=== PATIENT | female | born 2000 | race Caucasian/White ===

== ENCOUNTER 2021-08-27 19:09 | Emergency (ER) | payer OTHER ==
[~2021-08-27] VITALS: Ht 170.2 cm; Wt 65.0 kg
[~2021-08-27 19:09] MED LIST: CEPH-264 PO; HYDR-3165 PO; SILV20CR14 TP
[2021-08-27 19:20] VITALS: BP 115/74
--- NOTE | 2021-08-27 19:40 | PHYS DOC ---
Past History Past Medical History: No Pertinent History (ZENA YUAN APRN) Past Surgical History: No Surgical History (ZENA YUAN APRN) Smoking: Non-smoker Alcohol Use: None Drug Use: None (ZEAN YUAN APRN) General Adult EDM: Chief Complaint: BACK PAIN OR INJURY HPI: HPI: Patient is a 20-year-old female who presents to the emergency department today for left flank pain. Patient reports that she has had dysuria over the last week. She rates her pain 6 out of 10. No treatment prior to arrival. She denies any fevers, nausea, vomiting, abdominal pain. (ZENA YUAN APRN) Review of Systems: Review of Systems: Constitutional: See HPI GI: See HPI : See HPI Musculoskeletal: See HPI (ZENA YUAN APRN) Allergies: Allergies: Allergies Coded Allergies Type Severity Reaction Last Updated Verified No Known Drug Allergies 03/09/16 No (ZENA YUAN APRN) Physical Exam: PE: Constitutional: Well developed, well nourished, no acute distress, non-toxic appearance. [] HENT: Normocephalic, atraumatic, bilateral external ears normal, oropharynx moist, no oral exudates, nose normal. [] Eyes: PERRL, EOMI, conjunctiva normal, no discharge. [] Neck: Normal range of motion, no tenderness, supple, no stridor. [] Cardiovascular:Heart rate regular rhythm, no murmur [] Lungs & Thorax: Bilateral breath sounds clear to auscultation [] Abdomen: Bowel sounds normal, soft, no tenderness, no masses, no pulsatile masses. [] Skin: Warm, dry, no erythema, no rash. [] Back: No tenderness, left CVA tenderness Extremities: No tenderness, no cyanosis, no clubbing, ROM intact, no edema. [] Neurologic: Alert and oriented X 3, normal motor function, normal sensory function, no focal deficits noted. [] Psychologic: Affect normal, judgement normal, mood normal. [] (ZENA YUAN APRN) Current Patient Data: Labs: Laboratory Tests Test 08/27/21 18:52 08/27/21 19:35 Bedside Urine HCG, Qualitative hcg negative Urine Collection Type Clean catch Urine Color Yellow Urine Clarity Cloudy Urine pH 6.0 Urine Specific [place] >=1.030 Urine Protein >100 mg/dl Urine Glucose (UA) Neg mg/dL Urine Ketones (Stick) Neg mg/dL Urine Blood Large Urine Nitrite Neg Urine Bilirubin Neg Urine Urobilinogen Dipstick 0.2 mg/dL Urine Leukocyte Esterase Small Urine RBC 11-20 /HPF Urine WBC 20-40 /HPF Urine Squamous Epithelial Cells Few /LPF Urine Bacteria Mod /HPF (ZENA YUAN APRN) EKG: EKG: [] (ZENA YUAN APRN) Radiology/Procedures: Radiology/Procedures: [] (ZENA YUAN APRN) Heart Score: C/O Chest Pain: N/A Risk Factors: Risk Factors: DM, Current or recent (<one month) smoker, HTN, HLP, family history of CAD, obesity. Risk Scores: Score 0 - 3: 2.5% MACE over next 6 weeks - Discharge Home Score 4 - 6: 20.3% MACE over next 6 weeks - Admit for Clinical Observation Score 7 - 10: 72.7% MACE over next 6 weeks - Early Invasive Strategies (ZENA YUAN APRN) Course & Med Decision Making: Course & Med Decision Making Pertinent Labs and Imaging studies reviewed. (See chart for details) [] Patient presents to the emergency department today for left flank pain and dysuria. Urinalysis test performed. Urinalysis shows a urinary tract infection. Patient be treated with an antibiotic. Patient advised to increase fluids and avoid bladder irritants. I discussed with patient all findings and diagnostic testing as well as the need to follow-up with PCP for further evaluation and treatment or return to the ER if any new or worsening symptoms. Strict return precautions were also discussed at length. Patient voiced understanding and agreement with the plan. Patient is hemodynamically stable at the time of disposition. (ZENA YUAN APRN) Dragon Disclaimer: Dragon Disclaimer: This electronic medical record was generated, in whole or in part, using a voice recognition dictation system. (ZENA YUAN APRN) Attending Co-Sign The patient was seen and interviewed as well as examined at the bedside. The chart was reviewed. The case was discussed. Agree with the plan of care. (FRANSISCA ALSTON DO) Departure Departure: Impression: Primary Impression: Urinary tract infection Qualified Codes: N30.01 - Acute cystitis with hematuria Disposition: HOME / SELF CARE / HOMELESS Condition: GOOD Referrals: PCP,UNKNOWN (PCP) Patient Instructions: Urinary Tract Infection Additional Instructions: You were seen in the emergency department for flank pain and dysuria. You were noted to have a urinary tract infection which should be treated with an antibiotic. You are also being discharged home with medication to help with the bladder spasm pain. This medication may cause orange discoloration of your urine. Please start and finish the antibiotic completely. Increase your fluids and avoid bladder irritants like caffeine, sugary beverages or alcohol. Follow-up with your primary care provider within a week regarding your ER visit. Return to the emergency department if you develop abdominal pain, worsening of your flank pain, intractable nausea or vomiting, high fevers refractory to treatment. Scripts Phenazopyridine Hcl (PYRIDIUM) 100 Mg Tablet 1 TAB PO TID for urinary discomfort for 2 Days, #6 TAB 0 Refills Prov: ZENA YUAN APRN 08/27/21 Cephalexin (KEFLEX) 500 Mg Capsule 1 CAP PO BID for uti for 7 Days, #14 CAP 0 Refills Prov: ZENA YUAN APRN 08/27/21 ZENA YUAN APRN August 27, 2021 19:40 FRANSISCA ALSTON DO August 28, 2021 05:23
[2021-08-27 20:11] LABS: BACTERIA,URINE MOD /HPF (0-FEW); CLARITY,URINE CLOUDY; COLOR,URINE YELLOW; GLUCOSE,URINE NEG (NEG); NITRITE,URINE NEG (NEG); SQUAMOUS EPITHELIAL CELL,UR FEW /LPF; UROBILINOGEN,URINE 0.2 mg/dL (0.2 mg/dL); WBC,URINE 20-40 /HPF (0-4)
[2021-08-27] MEDS ORDERED: CEPH500C PO (20:23)
[2021-08-27] MEDS ORDERED: PHEN100T82 PO (20:28)
== END 2021-08-27 20:52 | disposition home or self-care (01) ==
LOC: ER 19:09
DX: N30.01 Acute cystitis with hematuria (principal)
CPT/HCPCS: 81001; 81025; 87077; 87086; 87186; 99283